=== PATIENT | female | born 2005 | race Caucasian/White ===

== ENCOUNTER 2025-07-30 16:28 | Inpatient (IN) | payer OTHER ==
[2025-07-30 17:04] LABS: #Basophils 0.04 10x3/uL (0.0-0.2); #Eosinophils 0.11 10x3/uL (0.0-0.7); #Monocytes 0.62 10x3/uL (0.11-0.59); #Neutrophils 8.42 10x3/uL (1.40-6.50); %Basophils 0.4 % (0.0-1.0); %Eosinophils 1.0 % (0.0-10.0); %Lymphocytes 14.2 % (21.0-51.0); %Monocytes 5.8 % (0.0-10.0); %Neutrophils 78.4 % (42.0-75.0); Hematocrit 38.5 % (36.0-47.0); Hemoglobin 11.5 g/dL (12.0-16.0); Mean Corpuscular Hemoglobin 23.7 pg (27.0-31.0); Mean Corpuscular Volume 79.2 fL (78.0-98.0); Platelet Count 377 10x3/uL (130-400); Red Blood Cell (RBC) Count 4.86 mill/uL (4.20-5.40); White Blood Cell (WBC) Count 10.74 10x3/uL (4.8-10.8)
[2025-07-30 17:54] LABS: ALT (SGPT) 543 U/L (Less than 34); AST (SGOT) 362 U/L (11-34); Albumin 3.9 g/dL (3.1-4.5); Alkaline Phosphatase 441 U/L (40-110); Anion Gap 15 mmol/L (10-20); BUN (Urea Nitrogen) 6 mg/dL (7.0-18.7); Bilirubin, Total 1.5 mg/dL (0.3-1.2); Calc. Creatinine Clearance 0 mL/min (70-130); Calcium 10.0 mg/dL (7.8-10.44); Carbon Dioxide 19 mmol/L (22-29); Chloride 108 mmol/L (98-107); Globulin 4.5 g/dL (2.4-3.5); Glucose 90 mg/dL (70-105); Potassium 3.7 mmol/L (3.5-5.1); Sodium 138 mmol/L (136-145)
[2025-07-30 17:59] LABS: Lipase 389 U/L (8-78)
[2025-07-30 18:03] LABS: Acetaminophen Less than 10 mcg/mL (Less than 10); Salicylate Less than 8.0 mg/dL (Less than 8.0)
[2025-07-30 18:21] LABS: Hep A IgM AB NONREACTIVE (NonReactive); Hep A IgM S/CO 0.35 S/CO (0-0.79); Hep B Core IgM Index 0.15 S/CO (0-0.79); Hep B Surf Ag NONREACTIVE S/CO (NonReactive); Hep C IgG Ab NONREACTIVE S/CO (NonReactive); Hep C Index 0.33 S/CO (0-0.79)
[2025-07-30 18:58] LABS: MONO NEGATIVE CONTROL ZONE White (Negative) (White); MONO POSITIVE CONTROL Pink Line (Positive) (PINK/RED); Mononucleosis NEGATIVE (NEGATIVE)
[2025-07-30] MEDS ORDERED: Ondansetron PF 4 MG/2 ML Vial IVP PRN (19:28)
[2025-07-30] MEDS ORDERED: Dextrose 50% Abboject 50 ML SYRINGE SLOW IVP PRN (19:28)
[2025-07-30] MEDS ORDERED: Glucagon 1 MG/ML KIT IM PRN (19:28)
[2025-07-30 19:35] LABS: INR-International Normal Ratio 0.9; PTT 29.3 sec (22.9-36.1); Prothrombin Time 12.7 sec (12.0-14.7)
[2025-07-30 22:24] VITALS: BMI 41.5
[2025-07-31 05:38] LABS: ALT (SGPT) 507 U/L (Less than 34); AST (SGOT) 338 U/L (11-34); Albumin 3.2 g/dL (3.1-4.5); Alkaline Phosphatase 356 U/L (40-110); Anion Gap 14 mmol/L (10-20); BUN (Urea Nitrogen) 9 mg/dL (7.0-18.7); Bilirubin, Total 1.2 mg/dL (0.3-1.2); Calc. Creatinine Clearance 182 mL/min (70-130); Calcium 9.1 mg/dL (7.8-10.44); Carbon Dioxide 20 mmol/L (22-29); Chloride 109 mmol/L (98-107); Globulin 3.5 g/dL (2.4-3.5); Glucose 107 mg/dL (70-105); Potassium 3.5 mmol/L (3.5-5.1); Sodium 139 mmol/L (136-145)
[2025-07-31] MEDS: PNEUMOC 20-VAL CONJ-DIP CRM/PF 0.5 ML SYRINGE IM ONE (10:39)
[2025-08-01 06:13] LABS: ALT (SGPT) 433 U/L (Less than 34); AST (SGOT) 214 U/L (11-34); Albumin 3.2 g/dL (3.1-4.5); Alkaline Phosphatase 296 U/L (40-110); Anion Gap 15 mmol/L (10-20); BUN (Urea Nitrogen) 10 mg/dL (7.0-18.7); Bilirubin, Total 0.5 mg/dL (0.3-1.2); Calc. Creatinine Clearance 187 mL/min (70-130); Calcium 9.3 mg/dL (7.8-10.44); Carbon Dioxide 17 mmol/L (22-29); Chloride 110 mmol/L (98-107); Globulin 3.5 g/dL (2.4-3.5); Glucose 115 mg/dL (70-105); Potassium 4.1 mmol/L (3.5-5.1); Sodium 138 mmol/L (136-145)
[2025-08-01 07:29] LABS: Hematocrit 36.3 % (36.0-47.0); Hemoglobin 9.9 g/dL (12.0-16.0); Mean Corpuscular Hemoglobin 23.9 pg (27.0-31.0); Mean Corpuscular Volume 87.5 fL (78.0-98.0); Platelet Count 301 10x3/uL (130-400); Red Blood Cell (RBC) Count 4.15 mill/uL (4.20-5.40); White Blood Cell (WBC) Count 9.26 10x3/uL (4.8-10.8)
[2025-08-01 07:53] LABS: Ovalocytes SLIGHT = 2-5 cells HPF (0-1); Platelet Adequacy Comment Platelets Normal; Polychromasia SLIGHT = 2-3 cells HPF (0-2)
[2025-08-01 08:00] LABS: #Basophils 0.05 10x3/uL (0.0-0.2); #Eosinophils 0.13 10x3/uL (0.0-0.7); #Monocytes 0.65 10x3/uL (0.11-0.59); #Neutrophils 6.22 10x3/uL (1.40-6.50); %Basophils 0.5 % (0.0-1.0); %Eosinophils 1.4 % (0.0-10.0); %Lymphocytes 23.5 % (21.0-51.0); %Monocytes 7.0 % (0.0-10.0); %Neutrophils 67.3 % (42.0-75.0)
[2025-08-01] MEDS ORDERED: Bupivacaine 0.25% HCL 30 ML VIAL ONE (09:31)
[2025-08-01] MEDS ORDERED: Ondansetron PF 4 MG/2 ML Vial ONE (10:33)
[2025-08-01] MEDS ORDERED: Rocuronium Bromide 10 MG/ML (10ML VIAL) ONE (10:33)
[2025-08-01] MEDS ORDERED: PROPOFOL 20 ML ONE ×2 (10:34→11:38)
[2025-08-01] MEDS ORDERED: fentaNYL PF 100 MCG/2 ML SYRINGE ONE ×3 (10:34→12:57)
[2025-08-01] MEDS ORDERED: SUGAMMADEX SODIUM 200 MG/2 ML VIAL ONE (10:34)
[2025-08-01] MEDS: Acetaminophen 325 MG TAB PO PRN (16:03)
[2025-08-01 22:41] VITALS: BP 126/79
[2025-08-01 22:43] VITALS: TEMP 97.8
== END 2025-08-01 16:45 | disposition home or self-care (01) | DRG 419 ==
LOC: ERS 16:28 → SURG B 19:28
PROVIDERS: ADMIT Surgery; ATTEND Surgery
PROC: 0FT44ZZ Resection of Gallbladder, Percutaneous Endoscopic Approach (ICD-10-PCS; principal; 2025-07-30)
PROC: 8E0W4CZ Robotic Assisted Procedure of Trunk Region, Percutaneous Endoscopic Approach (ICD-10-PCS; 2025-07-30)
DX: K80.20 Calculus of gallbladder without cholecystitis without obstruction (principal); F41.9 Anxiety disorder, unspecified; K76.0 Fatty (change of) liver, not elsewhere classified; E80.6 Other disorders of bilirubin metabolism; Z79.899 Other long term (current) drug therapy
CPT/HCPCS: 36415; 74181; 76376; 76705; 80053; 80074; 80307; 83605; 83690; 84478; 85025; 85610; 85730; 86308; 88304; C1889; J0169; J0665; J1100; J2250; J2543; J2704; J7120; S2900